=== PATIENT | female | born 1985 | race Caucasian/White ===

== ENCOUNTER 2017-09-04 05:22 | Inpatient (IN) | payer BC ==
[2017-09-04] MEDS ORDERED: Scopolamine 1.5 MG Transdermal Patch TOP ONE (05:45)
[2017-09-04] MEDS ORDERED: Acetaminophen 500 MG Tab PO ONE (05:45)
[2017-09-04] MEDS ORDERED: Gabapentin 300 MG Cap PO ONE (05:45)
[2017-09-04] MEDS ORDERED: Dextrose 5%-Lactated Ringers 1,000 ML IV SCH ×2 (06:00→10:45)
[2017-09-04] MEDS ORDERED: Albuterol/Ipratropium 3.0-0.5 MG/3 ML Neb Soln NEB ONE (06:30)
[2017-09-04] MEDS ORDERED: cefOXitin 2 GM Vial ONE (06:35)
[2017-09-04] MEDS ORDERED: Succinylcholine 200 MG/10 ML MDV ONE (07:10)
[2017-09-04] MEDS ORDERED: Propofol 200 MG/20 ML SDV ONE (07:10)
[2017-09-04] MEDS ORDERED: Glycopyrrolate 0.2 MG/ML 5 ML MDV ONE (07:10)
[2017-09-04] MEDS ORDERED: Rocuronium 50 MG/5 ML Vial ONE (07:10)
[2017-09-04] MEDS ORDERED: Ondansetron 4 MG/2 ML SDV ONE ×2 (07:10→10:18)
[2017-09-04] MEDS ORDERED: Dexamethasone 4 MG/ML SDV ONE (07:10)
[2017-09-04] MEDS ORDERED: cefOXitin 2 GM in Sodium Chloride 0.9% 100 ML IV ONE (07:15)
[2017-09-04] MEDS ORDERED: cefOXitin 2 GM in Sodium Chloride 0.9% 50 ML IV ONE (07:15)
[2017-09-04] MEDS ORDERED: Lidocaine 0.4%/D5W 2 GM/500 ML BAG IV SCH (07:30)
[2017-09-04] MEDS ORDERED: Ropivacaine 60 ML, Dexamethasone 8 MG, EPINEPHrine 0.4 MG, Sodium Chloride 0.9% 17.6 ML NERVRT SCH ×4 (07:30)
[2017-09-04] MEDS ORDERED: Lidocaine 2% 100 MG/5 ML Syringe IVPUSH ONE (07:30)
[2017-09-04] MEDS ORDERED: Ketamine 500 MG/5 ML MDV IV SCH (07:30)
[2017-09-04] MEDS ORDERED: fentaNYL 250 MCG/5 ML SDV ONE (07:57)
[2017-09-04] MEDS ORDERED: hydrOXYzine HCl 100 MG/2 ML SDV IM ONE ×2 (09:11→10:35)
[2017-09-04] MEDS ORDERED: Meperidine PF 100 MG/ML Syringe IM ONE (10:35)
[2017-09-04] MEDS: [UNRECOGNIZED DRUG - OTHER] TOP SCH (10:56)
[2017-09-04] MEDS ORDERED: diphenhydrAMINE 50 MG/ML SDV IVPUSH PRN (11:00)
[2017-09-04] MEDS ORDERED: Metoclopramide 10 MG/2 ML SDV IVPUSH PRN (11:00)
[2017-09-04] MEDS ORDERED: Labetalol 20 MG/4 ML Syringe IVPUSH PRN (11:00)
[2017-09-04] MEDS ORDERED: hydrOXYzine HCl 100 MG/2 ML SDV IM PRN (11:00)
[2017-09-04] MEDS ORDERED: Ondansetron 4 MG/2 ML SDV IVPUSH PRN (11:00)
[2017-09-04] MEDS ORDERED: Albuterol/Ipratropium 3.0-0.5 MG/3 ML Neb Soln INH PRN (11:00)
[2017-09-04] MEDS: Albuterol/Ipratropium 3.0-0.5 MG/3 ML Neb Soln INH SCH ×3 (11:18→21:38)
[2017-09-04] MEDS: Pantoprazole 40 MG Vial IVPUSH SCH (11:53)
[2017-09-04] MEDS: Acetaminophen Soln 650 MG/20.3 ML UD Cup PO SCH ×2 (14:34→18:05)
[2017-09-04] MEDS: cefOXitin 2 GM in Sodium Chloride 0.9% 50 ML IV SCH ×2 (14:34→18:06)
[2017-09-04] MEDS: Gabapentin 250 MG/5 ML Solution ML 470 ML Bottle PO SCH ×2 (14:34→21:37)
[2017-09-04] MEDS ORDERED: MVI, Adult with Vitamin K 10 ML, Thiamine 200 MG, Chromium/Copper/Mang/Selen/Zn 1 ML in... IV SCH ×4 (16:00)
[2017-09-04] MEDS: Heparin Sodium 5,000 Units/ML Vial SUBCUT SCH (18:05)
[2017-09-05] MEDS: Acetaminophen Soln 650 MG/20.3 ML UD Cup PO SCH ×4 (00:07→18:02)
[2017-09-05] MEDS: cefOXitin 2 GM in Sodium Chloride 0.9% 50 ML IV SCH ×2 (00:11→07:56)
[2017-09-05] MEDS ORDERED: Iohexol 647 MG/ML 50 ML SDV PO STA (02:29)
[2017-09-05] MEDS: Heparin Sodium 5,000 Units/ML Vial SUBCUT SCH ×2 (05:09→18:02)
[2017-09-05] MEDS: Albuterol/Ipratropium 3.0-0.5 MG/3 ML Neb Soln INH SCH ×4 (07:51→20:47)
[2017-09-05] MEDS: Gabapentin 250 MG/5 ML Solution ML 470 ML Bottle PO SCH ×3 (08:58→20:39)
[2017-09-05] MEDS: [UNRECOGNIZED DRUG - OTHER] TOP SCH (08:58)
[2017-09-05] MEDS ORDERED: Dextrose 5%-Lactated Ringers 1,000 ML IV SCH (09:30)
[2017-09-05] MEDS: Lisinopril 5 MG Tab PO SCH (09:46)
[2017-09-05] MEDS: Levothyroxine 50 MCG Tab PO SCH (09:46)
[2017-09-05] MEDS: Pantoprazole 40 MG Vial IVPUSH SCH (11:25)
[2017-09-06] MEDS: Acetaminophen Soln 650 MG/20.3 ML UD Cup PO SCH ×4 (00:21→18:07)
[2017-09-06] MEDS: Heparin Sodium 5,000 Units/ML Vial SUBCUT SCH ×2 (05:47→18:07)
[2017-09-06] MEDS: Albuterol/Ipratropium 3.0-0.5 MG/3 ML Neb Soln INH SCH ×4 (07:19→21:47)
[2017-09-06] MEDS: Levothyroxine 50 MCG Tab PO SCH (07:32)
[2017-09-06] MEDS: Gabapentin 250 MG/5 ML Solution ML 470 ML Bottle PO SCH ×3 (08:32→21:47)
[2017-09-06] MEDS: Lisinopril 5 MG Tab PO SCH (08:32)
[2017-09-06] MEDS ORDERED: Cyanocobalamin (Vitamin B12) 1,000 MCG/ML SDV IM ONE (09:00)
--- NOTE | 2017-09-06 11:03 | PN ---
DATE OF SERVICE: 09/06/2017 The patient has been afebrile with stable vital signs. She is still having problems with pain control. I think we will keep her here 1 more day to make sure she is up and moving satisfactorily. Because of the polycystic kidney disease, she is not on any nonsteroidal anti-inflammatories which makes her pain control little bit more difficult. Otherwise, she is tolerating step-2 diet and we will maximize activity and work with pulmonary toilet, saline lock the IV today. Beka Fisher MD /[id number]
[2017-09-06] MEDS: Pantoprazole 40 MG Tab.CR PO SCH (12:17)
[2017-09-07] MEDS: Acetaminophen Soln 650 MG/20.3 ML UD Cup PO SCH ×3 (00:53→11:07)
[2017-09-07] MEDS: Heparin Sodium 5,000 Units/ML Vial SUBCUT SCH (06:28)
[2017-09-07] MEDS: Albuterol/Ipratropium 3.0-0.5 MG/3 ML Neb Soln INH SCH ×2 (07:21→13:01)
[2017-09-07] MEDS: Levothyroxine 50 MCG Tab PO SCH (07:57)
[2017-09-07] MEDS: Pantoprazole 40 MG Tab.CR PO SCH (07:58)
[2017-09-07] MEDS: Lisinopril 5 MG Tab PO SCH (08:00)
[2017-09-07] MEDS: Gabapentin 250 MG/5 ML Solution ML 470 ML Bottle PO SCH (08:00)
--- NOTE | 2017-09-07 08:40 | CR ---
UGI wo KUB HISTORY: eval R -Y GBP FINDINGS: After administration of oral contrast, upright views were obtained. Post operative changes gastric bypass. Surgical drains in place. No evidence for leak. Contrast passes freely into proximal small bowel loops. IMPRESSION: No evidence for leak or obstruction.
--- NOTE | 2017-09-07 09:02 | PN ---
DATE OF SERVICE: 09/05/2017 The patient is postop day #1 from a gastric bypass, along with liver biopsy and partial left hepatic lobectomy to remove an abnormal appearing cystic lesion, along with repair of the diaphragmatic hernia. Clinically, she has done well overnight. She is tolerating the non- narcotic pain management satisfactorily. We will restart her lisinopril and Synthroid today, go with a step-2 diet, and she may or may not be ready for discharge home tomorrow. Beka Fisher MD /[id number]
--- NOTE | 2017-09-08 11:26 | DISCH ---
ADMISSION DIAGNOSES: Morbid obesity, asthma, hypertension, allergic rhinitis, dyshidrotic eczema, hypothyroidism, irritable bowel syndrome, perioral dermatitis, and polycystic kidney disease. DISCHARGE DIAGNOSES: Laparoscopic Tamika-en-Y gastric bypass surgery with repair of paraesophageal diaphragmatic hernia and liver biopsy, for morbid obesity, paraesophageal diaphragmatic hernia, and hepatomegaly. Date of surgery, 09/04/2017. HISTORY: Caitlin March is a 31-year-old female with longstanding history of morbid obesity and increasing comorbidities. After preoperative evaluation and discussion of possible risks and possible complications, she wished to proceed with surgical procedure. HOSPITAL COURSE: Caitlin had her surgery on 09/04/2017. She had no operative complications. On postop day #1, her upper GI was normal, and she was advanced to step-2 gastric bypass diet with no cereal. Her oral intake was adequate. On postop day #2, her vital signs were stable, she was having problems with pain control, and on postop day #3, she received dietary instructions. Her activity was good, and she was able to be discharged to home. PHYSICAL EXAMINATION: GENERAL: Caitlin March is a 31-year-old female. She is alert and orientated. VITAL SIGNS: Height is 5 feet 4 inches; weight is 295 pounds, 9.6 ounces; BMI is 50.7. TPR is 97.5, 86, 20. Blood pressure 133/72. HEENT: Negative. NECK: Supple. HEART: Regular rate and rhythm. LUNGS: Clear. ABDOMEN: Sutures in place. 4x4 over ELBA drain site. Abdominal binder has been on. EXTREMITIES: Without peripheral edema. DISPOSITION: Discharged to home. CONDITION: Stable and improving. FOLLOWUP: Followup appointment with Lashell Kurtz PA-C, on 09/15/2017 at 10:45 a.m., appointment at [place], [place]. MEDICATIONS: New prescriptions: 1. Zofran ODT 4 mg every 4 hours p.r.n. nausea, #30. 2. Tylenol 650 mg q.6 hours for pain, 650 mg/20.3 mL, she is to take for 14 days. 1000 mL given with 6 refills. 3. Neurontin 300 mg oral 3 times a day, 250 mg/5 mL and 14 days given. Continue home meds of: 1. Albuterol ProAir inhaler 1 to 2 puffs p.r.n. shortness of breath every 6 hours. 2. Symbicort 2 puffs inhalation twice daily. 3. Cetirizine 10 mg oral daily for allergies. 4. Clobetasol 0.05% one dose topical as needed for rash. 5. Nexplanon control, continue as directed. 6. Flonase 2 sprays inhalation twice daily p.r.n. allergies. 7. Levothyroxine 50 mcg oral before breakfast. 8. Lisinopril 5 mg oral daily. 9. Amerge, naratriptan, 2.5 mg oral as directed p.r.n. migraine, 1 tablet 1 time as needed for migraine up to 1 dose and then 2.5 mg at headache onset, may repeat in 4 hours. 10.Mycolog cream 1 dose topical twice daily p.r.n. rash. 11.Triamcinolone Acetonide, Kenalog, 0.1% lotion 1 dose topical twice daily. Discontinue taking calcium citrate, B12, glucosamine-chondroitin, multivitamin with iron, Turmeric, and vitamin B complex. DISCHARGE INSTRUCTIONS: 1. Diet after discharge: Drink 8 to 10 glasses of water a day. Step-2 gastric bypass diet with no cereal for 2 weeks. 2. Activity as tolerated. No lifting greater than 10 pounds for 2 weeks. 3. Driving, do not drive for 2 weeks and then as tolerated. 4. Shower/bathing, may shower. 5. Notify provider if any fever, pain, nausea or vomiting. Keep site clean and dry. Wear abdominal binder for 2 weeks and then as tolerated. Use incentive spirometer 10 times every hour while awake for 2 weeks.
--- NOTE | 2017-09-08 12:38 | OR ---
DATE OF PROCEDURE: 09/04/2017 PREOPERATIVE DIAGNOSIS: Morbid obesity. POSTOPERATIVE DIAGNOSES: 1. Morbid obesity. 2. Marked hepatomegaly. 3. Sclerotic cystic lesion involving left lobe of liver. 4. Paraesophageal diaphragmatic hernia. OPERATIVE PROCEDURES: 1. Laparoscopic Tamika-en-Y gastric bypass with long limb gastroenterostomy, (55643). 2. Tyler-Cut needle liver biopsy, (16135). 3. Partial left hepatic lobectomy excising sclerotic-appearing cystic lesion of left lobe of liver, (56712). 4. Repair of paraesophageal diaphragmatic hernia, (14104). ANESTHESIA: General. FOOD SERVICE WORKER: Lashell Kurtz PA-C. INDICATIONS FOR PROCEDURE: This is a 31-year-old female presenting with longstanding morbid obesity and increasingly significant comorbidities. After preoperative evaluation and discussion, she wished to proceed with a gastric bypass procedure. Potential risks of the procedure including bleeding, infection, leaks from various GI tract closures, problems with bowel obstruction over time, as well as the possibility of cardiopulmonary, septic, or hemorrhagic complications leading to were discussed, and the patient wishes to proceed. DETAILS OF PROCEDURE: The patient was taken to the operating room and placed in a supine position. After general endotracheal anesthesia was induced, she was converted to a lithotomy position, and the abdomen was prepped and draped. An orogastric tube was also placed. 15 cm inferior and 5 cm left of the xiphoid process, a transverse incision was made, and the peritoneal cavity entered under direct vision with an Optiview trocar and inflated to 15 mmHg pressure of CO2. Laparoscope was then reinserted. No underlying trocar insertion site injuries were seen. Following this, bilateral subcostal transversus abdominis plane blocks were placed using the standard solution and direct visualization of the needle in the correct plane via the laparoscopic vantage point. Following this, 5 additional trocars were placed across the upper and mid-abdomen, and general exploration was undertaken. The patient was noted to have a markedly enlarged liver with the liver being grossly fatty infiltrated. There were some scattered cystic lesions within the lesion consistent with the patient's known history of polycystic kidney disease, in this case, also obviously involving the liver. There was, however, on the lateral aspect of the left lobe, a sclerotic lesion which had quite a bit of fibrotic reaction around it and it was somewhat suspicious for a neoplastic process. Given this, partial left hepatic lobectomy was accomplished using a combination of Harmonic scalpel and mary, removing the lateral roughly one-third of what may amount to hepatic segments II and III. Once this was accomplished, it was placed in a specimen bag and retrieved through the left lateral trocar site. Hemostasis appeared to be good at this point and no bile leaks were noted at that point or for the remainder of the case. Tyler-Cut needle liver biopsies were obtained from the left lobe as well to provide more of an overview of the medical status of the liver apart from the area that was involved in the sclerotic changes as noted above. Hemostasis was obtained at that site with electrocautery. At this point, the omentum was divided in the midline up to the level of the transverse colon. This allowed identification of the small bowel to the ligament of Treitz. The small bowel was then traced out 200 cm distal to that point, where it was divided transversely with a EVA stapler. Small bowel was then traced out an additional 150 cm, where the side-to- side enteroenterostomy was accomplished with internal firing of the Endo-EVA 60-mm stapler. Common opening was then closed transversely with the same stapler, angles anastomosed, and mesenteric defect approximated with some 0 Ethibond stitch along with fibrin sealant. The divided end of the Tamika limb was then from the mesentery for a few centimeters, which allowed an antecolic position of the Tamika limb up to the level of the gastroesophageal junction without tension. The liver was then retracted anteriorly. The patient was noted to have a moderate-sized paraesophageal diaphragmatic hernia. This included a prolapse of some perigastric fat, some portion of the gastric fundus, and a tongue of omentum. This was reduced and the peritoneum overlying it was incised and reflected downward. The repair was then accomplished with 0 Ethibond sutures reinforced with PTFE pledgets. At this point, the gastrointestinal balloon catheter was inflated to 15 mL and pulled up snugly against the EG junction. Gastric wall of apex balloon was then marked with electrocautery and balloon catheter deflated and pulled up in the esophagus. The lesser omental tissue was then divided adjacent to the gastric cardia allowing dissection behind the stomach at that level. Pouch formation was then initiated with a transverse firing of the EVA stapler at the level of the cauterized shalom at the gastric cardia. The pouch was then completed with additional firings of the EVA stapler up to and through the angle of His. Upon completion of the pouch, both staple lines were noted to be intact. The anvil of a 25-mm EEA stapler was then attached to [place] sump type tube. The latter was brought down through the mouth and taken out through a small opening in the gastric pouch, allowing the anvil likewise to be pulled down to within the gastric pouch. The divided end of the Tamika limb was then opened, main body of the EEA stapler was passed several centimeters in the lumen of the small bowel, brought up the anvil and united with it, thus creating the gastrojejunostomy. Upon removal of the stapler, double doughnuts of mucosa were noted within it. Small bowel was closed off with a vascular staple line. Gastrojejunostomy was then reinforced with some 3-0 Vicryl seromuscular stitch along with fibrin sealant. A leak test was accomplished with injection of 120 mL of air in the gastric pouch while submerged with cefoxitin-containing saline solution. No leaks were identified. A single Roshan-Jensen drain was taken out through the left lateral trocar site and positioned adjacent to the gastrojejunostomy, further up in the splenic fossa with no further problems noted. Trocars were removed, and the peritoneal cavity deflated. The incisions were closed with some 4-0 Vicryl skin stitch and drains affixed with 4-0 Vicryl stitch as well. Dressing was applied. The patient was taken to the recovery room in satisfactory condition. Physician drug safety assistant, Lashell Kurtz, played an essential role in assisting in this case, helping to position the patient, retract structures as needed, as well as suturing and cutting sutures when indicated. Her presence improved patient safety and decreased the operative time. Beka Fisher MD /[id number]
== END 2017-09-07 13:10 | disposition home or self-care (01) | DRG 403 ==
LOC: JP.MS 05:22 → JP.SDS 05:22 → EDSTATUS 07:30 → JP.2SS 10:00
PROVIDERS: ADMIT Surgery; ATTEND Surgery
PROC: 0D164ZA Bypass Stomach to Jejunum, Percutaneous Endoscopic Approach (ICD-10-PCS; principal; 2017-09-04)
PROC: 0BQT4ZZ Repair Diaphragm, Percutaneous Endoscopic Approach (ICD-10-PCS; 2017-09-04)
PROC: 0FB24ZX Excision of Left Lobe Liver, Percutaneous Endoscopic Approach, Diagnostic (ICD-10-PCS; 2017-09-04)
PROC: 0FB24ZZ Excision of Left Lobe Liver, Percutaneous Endoscopic Approach (ICD-10-PCS; 2017-09-04)
PROC: 3E0T3BZ Introduction of Anesthetic Agent into Peripheral Nerves and Plexi, Percutaneous Approach (ICD-10-PCS; 2017-09-04)
DX: E66.01 Morbid (severe) obesity due to excess calories (principal); Z68.43 Body mass index [BMI] 50.0-59.9, adult; K44.9 Diaphragmatic hernia without obstruction or gangrene; R16.0 Hepatomegaly, not elsewhere classified; K76.0 Fatty (change of) liver, not elsewhere classified; K76.89 Other specified diseases of liver; Q61.3 Polycystic kidney, unspecified; I10 Essential (primary) hypertension; J45.40 Moderate persistent asthma, uncomplicated; E03.9 Hypothyroidism, unspecified; Z88.6 Allergy status to analgesic agent; Z91.048 Other nonmedicinal substance allergy status; K58.9 Irritable bowel syndrome, unspecified; L30.1 Dyshidrosis [pompholyx]
CPT/HCPCS: 36415; 74240; 74240-26; 81025; 82962; 83036; 85027; 86850; 86900; 86901; 88305; 88307; 88313; 94640; 94762; A9270-GY; C9113; J0171; J0330; J0694; J1100; J1644; J2001; J2175; J2405; J2704; J2795; J3010; J3410; J3411; J3420; J7030; J7042; J7050; J7620; Q9967

== ENCOUNTER 2020-06-26 05:17 | Day surgery (SDC) | payer BC, OTHER ==
[2020-06-26] MEDS ORDERED: Acetaminophen 500 MG Tab PO ONE (05:45)
[2020-06-26] MEDS ORDERED: Dextrose 5%-Lactated Ringers 1,000 ML IV SCH (06:00)
[2020-06-26] MEDS ORDERED: Albuterol/Ipratropium 3.0-0.5 MG/3 ML Neb Soln NEB ONE (06:30)
[2020-06-26] MEDS ORDERED: Meropenem 500 MG SDV ONE (06:45)
[2020-06-26] MEDS ORDERED: Glycopyrrolate 0.2 MG/ML 5 ML MDV ONE (06:55)
[2020-06-26] MEDS ORDERED: Neostigmine Methylsulfate 1 MG/ML 5 ML Syringe ONE (06:55)
[2020-06-26] MEDS ORDERED: Rocuronium 50 MG/5 ML Vial ONE (06:55)
[2020-06-26] MEDS ORDERED: Dexamethasone 4 MG/ML SDV ONE (06:55)
[2020-06-26] MEDS ORDERED: Propofol 200 MG/20 ML SDV ONE (06:55)
[2020-06-26] MEDS ORDERED: Ondansetron 4 MG/2 ML SDV ONE (06:55)
[2020-06-26] MEDS ORDERED: fentaNYL 250 MCG/5 ML SDV ONE ×2 (06:56→07:41)
[2020-06-26] MEDS ORDERED: Mupirocin Oint 22 GM Tube ONE (07:03)
[2020-06-26] MEDS ORDERED: ceFAZolin 2 GM in Premix Bag 1 BAG IV ONE (07:15)
[2020-06-26] MEDS ORDERED: Naloxone 0.4 MG/ML SDV IVPUSH PRN (08:10)
[2020-06-26] MEDS ORDERED: HYDROmorphone/Normal Saline 15 MG/30 ML PCA IV PRN (08:10)
[2020-06-26] MEDS ORDERED: Ketamine 50 MG in Sodium Chloride 0.9% 49.5 ML IV SCH (08:30)
[2020-06-26] MEDS ORDERED: Ketamine 500 MG/5 ML MDV IV SCH (08:30)
[2020-06-26] MEDS: Ondansetron 4 MG/2 ML SDV IVPUSH PRN ×2 (09:52→14:43)
[2020-06-26] MEDS ORDERED: Lactated Ringers 1,000 ML ONE (10:13)
[2020-06-26] MEDS ORDERED: hydrOXYzine HCL 100 MG/2 ML SDV IM PRN (10:29)
[2020-06-26] MEDS ORDERED: Albuterol/Ipratropium 3.0-0.5 MG/3 ML Neb Soln INH PRN (10:32)
[2020-06-26] MEDS ORDERED: Fluticasone Propionate Nasal Spray 16 GM Bottle NASBOTH PRN (10:37)
[2020-06-26] MEDS ORDERED: Metoclopramide 10 MG/2 ML SDV IV STA (12:03)
[2020-06-26] MEDS: Dextrose 5%-Lactated Ringers 1,000 ML IV SCH (12:04)
[2020-06-26] MEDS: Acetaminophen 500 MG Tab PO SCH ×2 (13:18→21:20)
[2020-06-26] MEDS ORDERED: Sodium Ferric Gluconate Cmplex 250 MG in Sodium Chloride 0.9% 100 ML IV SCH (14:00)
[2020-06-26] MEDS: Gabapentin 300 MG Cap PO SCH ×2 (14:48→21:20)
[2020-06-26] MEDS: ceFAZolin 2 GM in Premix Bag 1 BAG IV SCH ×2 (14:50→21:32)
[2020-06-26] MEDS ORDERED: SUMAtriptan 50 MG Tab PO PRN (15:59)
[2020-06-26] MEDS ORDERED: Metoclopramide 10 MG/2 ML SDV IV PRN (16:00)
[2020-06-26] MEDS ORDERED: Scopolamine 1.5 MG Transdermal Patch TRDERM PRN (17:39)
[2020-06-27] MEDS: Acetaminophen 500 MG Tab PO SCH ×3 (01:01→11:43)
[2020-06-27] MEDS: Dextrose 5%-Lactated Ringers 1,000 ML IV SCH (02:50)
[2020-06-27] MEDS: ceFAZolin 2 GM in Premix Bag 1 BAG IV SCH (05:36)
[2020-06-27] MEDS ORDERED: Dextrose 5%-Lactated Ringers 1,000 ML IV SCH (07:19)
[2020-06-27] MEDS ORDERED: Levothyroxine 50 MCG Tab PO SCH (07:30)
[2020-06-27] MEDS ORDERED: Sodium Ferric Gluconate Cmplex 250 MG in Sodium Chloride 0.9% 100 ML IV SCH (08:30)
[2020-06-27] MEDS: Gabapentin 300 MG Cap PO SCH (08:34)
[2020-06-27] MEDS ORDERED: Cetirizine 10 MG Tab PO SCH (09:00)
[2020-06-27] MEDS ORDERED: Mupirocin Oint 22 GM Tube TOP SCH (09:00)
[2020-06-27] MEDS ORDERED: OVCON PO SCH (09:00)
[2020-06-27] MEDS ORDERED: Lisinopril 5 MG Tab PO SCH (09:00)
[2020-06-27] MEDS ORDERED: VERIFY SCOP PATCH TOP SCH (09:00)
--- NOTE | 2020-06-27 11:21 | DISCH ---
ADMISSION DIAGNOSES: Chronic panniculitis, status post Tamika-en-Y gastric bypass surgery, unspecified surgical malabsorption, B12 deficiency, iron-deficiency anemia, low ferritin. DISCHARGE DIAGNOSES: 1. Panniculectomy. 2. Repair of incarcerated trocar site hernia. POSTOPERATIVE DIAGNOSES: 1. Chronic panniculitis. 2. Incarcerated trocar site hernia. Date of procedure: 06/26/2020. Surgeon: Beka Fisher MD. 3. Low ferritin, iron infusions x2. HISTORY: Caitlin March is a pleasant 34-year-old female with longstanding history of chronic panniculitis. After preoperative evaluation and discussion of possible risks and possible complications, she wished to proceed with surgical procedure. HOSPITAL COURSE: Caitlin had her surgery on 06/26/2020. She had no operative complications. She did have some nausea with the Dilaudid APPLICATION MANAGER, and once that was stopped, the nausea subsided. Caitlin did receive 2 doses of ferric sodium gluconate complex 250 mg IV, one on day 06/26/2020 and then the second dose on day of discharge 06/27/2020. She tolerated both well. On postoperative day #1, she was able to be discharged to home without any complications. Pain was managed with Tylenol. Activity was good. Vital signs stable and oral intake adequate. PHYSICAL EXAMINATION: GENERAL: Caitlin March is a pleasant 34-year-old female. She is alert and orientated. VITAL SIGNS: TPR 98.3, 72, 16, blood pressure 131/79. HEENT: Negative. NECK: Supple. HEART: Regular rate and rhythm. LUNGS: Clear. ABDOMEN: Incision looks good, mary intact, healing well. ELBA drains x2 are draining a light red drainage of 110 and 110 respectively. EXTREMITIES: Without peripheral edema. NEUROLOGIC: Intact. PSYCHIATRIC: Mood and affect appropriate. DISPOSITION: Discharged to home. CONDITION: Stable and improving. FOLLOWUP APPOINTMENT: Lashell Kurtz PA-C, at [facility] on 06/29/2020 at 10 a.m. MEDICATIONS: She is to resume her home medications; Tylenol 1000 mg p.o. q.6 hours, Symbicort inhaler 2 puffs b.i.d., ProAir 1 to 2 puffs inhalation q.6 hours p.r.n., Valtrex 2000 mg p.o. b.i.d., Ovcon-35 28-day 1 daily, Amerge 2.5 mg p.o. p.r.n. migraine headaches, lisinopril 5 mg p.o. daily, levothyroxine 50 mcg p.o. daily; Neurontin 300 mg p.o. t.i.d., Flonase 2 sprays inhalation b.i.d., Ferrocite 324 mg p.o. daily, Nexplanon as directed, Cetirizine/Allergy Relief 10 mg daily, transderm scopolamine patch is on and she is to take this off on Thursday06/29/2020. DIET: Regular diet as tolerated. Drink 8 to 10 glasses of water a day. ACTIVITY: No lifting greater than 10 pounds for 6 weeks. Walk at least 6 times daily inside your home. Driving: Do not drive for 1 week. DISCHARGE INSTRUCTIONS: 1. Shower/bathing: May shower. Keep operative site clean and dry. Wear abdominal binder for 6 weeks. 2. Strip, empty, measure, and record ELBA drains 4 times a day. 3. Bring record of ELBA drainage to clinic appointments. 4. Notify provider if any fever, increased pain, swelling, redness, drainage, nausea, or vomiting. OTHER SPECIAL INSTRUCTION: Use incentive spirometer 10 times every hour while awake. /[id number]
--- NOTE | 2020-07-09 17:35 | OR ---
DATE OF PROCEDURE: 06/26/2020 SURGEON: Beka Fisher MD PREOPERATIVE DIAGNOSIS: Chronic panniculitis. POSTOPERATIVE DIAGNOSES: 1. Chronic panniculitis. 2. Incarcerated trocar site hernia. OPERATIVE PROCEDURES: 1. Panniculectomy (52954). 2. Repair of incarcerated trocar site hernia (12985). ANESTHESIA: General. HOME CARE SCHEDULER: Lashell Kurtz PA-C. INDICATIONS FOR PROCEDURE: This is a 34-year-old status post previous Tamika-en-Y gastric bypass, presenting with a large pannus that is chronically inflamed and also causing some problems with balance and orthopedic issues. After preoperative evaluation and discussion, she wished to proceed with the panniculectomy. Potential risks of the procedure including bleeding, infection, possible cosmetic deformity as well as possibility of cardiopulmonary, septic, or hemorrhagic complications leading to were discussed, and the patient wishes to proceed. DETAILS OF PROCEDURE: The patient was taken to the operating room, placed in a supine position. After general endotracheal anesthesia was induced, she had a Serna catheter inserted, and the abdomen was prepped and draped. A wide elliptical incision across the lower abdomen with a transverse orientation was then mapped out, and the incision was then carried through the mapped out incision lines, carried down through the skin, subcutaneous tissue. Using the Sonicision device, the subcutaneous tissue was then divided along the incision lines down to the level of the fascia. As one approached the area of the midline, the patient was noted to have a trocar site hernia, which contained some preperitoneal fat. This was reduced and the hernia was then closed with a [id number] stitch of #2 Vicryl stitch. Upon removal of the remaining attachments of the pannus of the abdominal wall, this was delivered from the field. The area was irrigated with an antibiotic-containing saline solution and 2 Roshan-Jensen drains were then placed through stab wounds above the incision, one positioned in each direction across the pannus excision site. The incision was then closed with 3-0 and 4-0 Vicryl stitch deep and then mary for the skin. Drains were fixed with some 4-0 Vicryl stitch and the patient was taken to the recovery room in satisfactory condition. There were no evident complications. Physician assistant technician, Lashell Kurtz, played an essential role in assisting in this case, helping to position the patient, retract structures as needed, as well as suturing and cutting sutures when indicated. Her presence improved patient safety and decreased operative time. Beka Fisher MD /[id number]
== END 2020-06-27 12:57 | disposition home or self-care (01) ==
LOC: JP.SDSSCHI 05:17 → UNDOADMIN 05:17 → JP.SDS 05:17 → EDSTATUS 07:15 → JP.SDSSCHI 08:50 → JP.MS 08:50 → UNDODISIN 06-27 12:57 → JP.SDS 06-27 12:57
PROVIDERS: ATTEND Surgery
DX: M79.3 Panniculitis, unspecified (principal); L90.5 Scar conditions and fibrosis of skin; K43.0 Incisional hernia with obstruction, without gangrene; K91.2 Postsurgical malabsorption, not elsewhere classified; E53.8 Deficiency of other specified B group vitamins; D50.9 Iron deficiency anemia, unspecified; I12.9 Hypertensive chronic kidney disease with stage 1 through stage 4 chronic kidney disease, or unspecified chronic kidney disease; N18.9 Chronic kidney disease, unspecified; D63.1 Anemia in chronic kidney disease; E03.9 Hypothyroidism, unspecified; J45.990 Exercise induced bronchospasm; E83.42 Hypomagnesemia; E66.3 Overweight; Q61.3 Polycystic kidney, unspecified; Q44.6 Cystic disease of liver; Z98.84 Bariatric surgery status; Z98.890 Other specified postprocedural states; Z88.8 Allergy status to other drugs, medicaments and biological substances; Z68.27 Body mass index [BMI] 27.0-27.9, adult; Z79.899 Other long term (current) drug therapy; Z79.890 Hormone replacement therapy; Z91.09 Other allergy status, other than to drugs and biological substances
CPT/HCPCS: 15830; 36415; 81025; 82607; 82728; 83735; 84100; 85027; 88305; 94640; 94762; A9270; J0171; J0690; J1100; J1170; J2020; J2185; J2405; J2704; J2710; J2765; J2795; J2916; J3010; J3490; J7120; J7121; J7620-GY

== ENCOUNTER 2022-06-28 02:58 | Inpatient (IN) | payer BC, OTHER ==
[2022-06-28 03:48] LABS: CORONAVIRUS COVID-19 NAA NEGATIVE (NEGATIVE)
[2022-06-28] MEDS ORDERED: Neostigmine Methylsulfate 1 MG/ML 5 ML Syringe ONE (03:53)
[2022-06-28] MEDS ORDERED: Propofol 200 MG/20 ML SDV ONE (03:53)
[2022-06-28] MEDS ORDERED: Rocuronium 50 MG/5 ML Vial ONE (03:53)
[2022-06-28] MEDS ORDERED: Glycopyrrolate 0.2 MG/ML 5 ML MDV ONE (03:53)
[2022-06-28] MEDS ORDERED: Succinylcholine 200 MG/10 ML MDV ONE (03:53)
[2022-06-28] MEDS ORDERED: fentaNYL 250 MCG/5 ML SDV ONE ×2 (03:53→05:11)
[2022-06-28] MEDS ORDERED: Ondansetron 4 MG/2 ML SDV ONE (03:53)
[2022-06-28] MEDS ORDERED: Dexamethasone 4 MG/ML SDV ONE (03:53)
[2022-06-28] MEDS ORDERED: Bupivacaine 0.5%/EPINEPHrine 1:200,000 50 ML MDV ONE (03:56)
[2022-06-28] MEDS ORDERED: diphenhydrAMINE 50 MG/ML SDV IVPUSH PRN (04:42)
[2022-06-28] MEDS ORDERED: Docusate Sodium 100 MG Cap PO PRN (04:42)
[2022-06-28] MEDS ORDERED: Promethazine 25 MG/ML SDV IM PRN (04:42)
[2022-06-28] MEDS ORDERED: fentaNYL 100 MCG/2 ML SDV IVPUSH PRN ×2 (04:42)
[2022-06-28] MEDS ORDERED: Bisacodyl 5 MG Tab PO PRN (04:42)
[2022-06-28] MEDS ORDERED: Benzocaine/Cetylpyridinium/Menthol Lozenge MUCMEM PRN (04:42)
[2022-06-28] MEDS ORDERED: ceFAZolin 1 GM Vial ONE ×2 (04:57→04:59)
[2022-06-28] MEDS ORDERED: ceFAZolin 1 GM in Sodium Chloride 0.9% 50 ML IV SCH (05:00)
[2022-06-28] MEDS ORDERED: Ketorolac 30 MG/ML SDV ONE (05:38)
[2022-06-28] MEDS: Sodium Chloride 0.9% 1,000 ML IV SCH ×3 (06:49→23:02)
[2022-06-28] MEDS ORDERED: fentaNYL 50 MCG/ML SDV IVPUSH PRN ×2 (09:38→09:39)
[2022-06-28] MEDS ORDERED: ceFAZolin 1 GM in Premix Bag 1 BAG IV SCH (13:00)
[2022-06-28] MEDS: Ondansetron 4 MG Tab.DIS PO PRN ×2 (15:10→19:51)
[2022-06-28] MEDS: Acetaminophen/oxyCODONE 325-10 MG Tab PO PRN ×2 (15:28→20:17)
[2022-06-28] MEDS ORDERED: Scopolamine 1.5 MG Transdermal Patch TRDERM PRN (19:56)
[2022-06-28] MEDS: Famotidine 20 MG Tab PO SCH (20:19)
[2022-06-29] MEDS: Acetaminophen/oxyCODONE 325-10 MG Tab PO PRN ×2 (00:24→04:27)
[2022-06-29] MEDS: Sodium Chloride 0.9% 1,000 ML IV SCH ×2 (06:27→14:40)
[2022-06-29] MEDS ORDERED: Acetaminophen 500 MG Tab PO SCH (08:00)
[2022-06-29] MEDS ORDERED: MVI, Adult with Vitamin K 10 ML, Thiamine 100 MG, Magnesium Sulfate 2 GM, Folic Acid 1 ... IV ONE ×10 (08:30)
[2022-06-29] MEDS: Celecoxib 200 MG Cap PO SCH ×2 (09:22→20:56)
[2022-06-29] MEDS: Enoxaparin 40 MG/0.4 ML Syringe SUBCUT SCH (09:23)
[2022-06-29] MEDS: Famotidine 20 MG Tab PO SCH ×2 (09:23→20:57)
[2022-06-29] MEDS: Bisacodyl 5 MG Tab PO SCH ×2 (09:23→20:56)
[2022-06-29] MEDS: CHECK SCOPOLAMINE PATCH DAILY SCH (09:24)
[2022-06-29] MEDS: oxyCODONE 5 MG Tab PO PRN ×2 (14:46→20:57)
[2022-06-29] MEDS: Acetaminophen 500 MG Tab PO SCH ×3 (14:47→21:00)
[2022-06-29] MEDS ORDERED: Pantoprazole 40 MG Tab.CR PO SCH (21:00)
[2022-06-30] MEDS: oxyCODONE 5 MG Tab PO PRN (02:59)
[2022-06-30] MEDS: Acetaminophen 500 MG Tab PO SCH ×3 (03:00→15:20)
[2022-06-30] MEDS: Sodium Chloride 0.9% 1,000 ML IV SCH (03:01)
[2022-06-30] MEDS ORDERED: Sodium Ferric Gluconate Cmplex 250 MG in Sodium Chloride 0.9% 100 ML IV ONE (08:30)
[2022-06-30] MEDS: Celecoxib 200 MG Cap PO SCH (08:47)
[2022-06-30] MEDS: Enoxaparin 40 MG/0.4 ML Syringe SUBCUT SCH (08:47)
[2022-06-30] MEDS: CHECK SCOPOLAMINE PATCH DAILY SCH (08:48)
[2022-06-30] MEDS: Bisacodyl 5 MG Tab PO SCH (08:48)
[2022-06-30] MEDS: Famotidine 20 MG Tab PO SCH (08:48)
== END 2022-06-30 15:20 | disposition home or self-care (01) | DRG 227 ==
LOC: UNDOADMOB 02:58 → JP.MS 02:58 → OBSVTOIN 04:42 → JP.MS 04:42
PROVIDERS: ADMIT Surgery; ATTEND Surgery
PROC: 0WQF0ZZ Repair Abdominal Wall, Open Approach (ICD-10-PCS; principal; 2022-06-28)
DX: K46.9 Unspecified abdominal hernia without obstruction or gangrene (principal); J45.909 Unspecified asthma, uncomplicated; I10 Essential (primary) hypertension; Z98.890 Other specified postprocedural states; Z88.8 Allergy status to other drugs, medicaments and biological substances; Z88.5 Allergy status to narcotic agent; Z98.84 Bariatric surgery status
CPT/HCPCS: 0241U; 36415; 80048; 82728; 85025; A9270-GY; J0131; J0330; J0690; J1100; J1650; J1885; J2405; J2704; J2710; J2916; J3010; J3411; J3475; J3490; J7030; J7120; Q0162